=== PATIENT | male | born 1995 | race Caucasian/White ===

== ENCOUNTER 2022-02-16 14:23 | Emergency (ER) | payer MEDICARE, OTHER ==
[~2022-02-16] VITALS: Ht 177.8 cm; Wt 79.4 kg
[~2022-02-16 14:23] MED LIST: CLON.5 PO; CODACE30 PO; CRUTCH4 USE; IBUP600 PO
== END 2022-02-16 15:48 | disposition left against medical advice (07) ==
LOC: ER 14:23
DX: K08.89 Other specified disorders of teeth and supporting structures (principal); Z53.21 Procedure and treatment not carried out due to patient leaving prior to being seen by health care provider
CPT/HCPCS: 99282